=== PATIENT | male | born 1985 | race Caucasian/White ===

== ENCOUNTER → 2018-09-16 10:54 | Outpatient (CLI) | payer SELFPAY ==
--- NOTE | 2018-09-16 11:03 | RAD_ITS ---
STUDY: X-RAY - RIGHT SHOULDER REASON FOR EXAM: Male, 32 years old. Increasing bilateral shoulder pain TECHNIQUE: 4 view(s) of the shoulder. COMPARISON: None. FINDINGS: Normal glenohumeral articulation. Normal acromioclavicular joint. Normal acromion. Normal humeral head and visualized proximal humerus. The soft tissue structures are unremarkable. Normal visualized pulmonary apex. RAD/Shoulder min 2 Views IMPRESSION: Normal x-ray examination of the shoulder. Electronically Signed: Vaibhav Pacheco MD at 19:41 EST , Service support ,
--- NOTE | 2018-09-16 11:03 | RAD_ITS ---
STUDY: X-RAY - LEFT SHOULDER REASON FOR EXAM: Male, 32 years old. Shoulder pain TECHNIQUE: 4 view(s) of the shoulder. COMPARISON: None. FINDINGS: Normal glenohumeral articulation. Normal acromioclavicular joint. Normal acromion. Normal humeral head and visualized proximal humerus. The soft tissue structures are unremarkable. There is a 3 mm lucent cortical defect of the superior aspect of the mid left clavicular shaft. There is minimal overlapping periosteal reaction. Normal visualized pulmonary apex. RAD/Shoulder min 2 Views IMPRESSION: Normal x-ray examination of the shoulder. There is a 3 mm lucent cortical defect of the superior aspect of the mid left clavicular shaft with overlying periosteal reaction. This is of unknown etiology or significance. Electronically Signed: Vaibhav Pacheco MD at 19:43 EST , Service support ,
== END ==
PROVIDERS: Family Provider Family Medicine; PCP Family Medicine; Referring Provider Family Medicine; Visit Provider Family Medicine
DX: M75.101 Unspecified rotator cuff tear or rupture of right shoulder, not specified as traumatic (principal); M75.102 Unspecified rotator cuff tear or rupture of left shoulder, not specified as traumatic
CPT/HCPCS: 73030

== ENCOUNTER → 2024-08-10 | Outpatient (CLI) | payer SELFPAY ==
--- NOTE | 2024-08-10 07:57 | ECHOD_ITS ---
Reason For Study: Arrhythmia Procedure This was a 2D Doppler, Color Flow transthoracic echocardiogram. Exam performed in department. Left Ventricle Normal LV size. The left ventricular ejection fraction is 50 %. Stage 1 diastolic dysfunction. There is borderline global hypokinesis of the left ventricle. Right Ventricle Normal RV size. Normal systolic function. Atria Normal left atrium. Normal right atrium. Tricuspid Valve Normal tricuspid valve. Trivial tricuspid valve insufficiency. Pulmonic Valve Normal pulmonic valve. Great Vessels Normal aortic root. The pulmonary artery is normal size. Inferior vena cava collapse with sniff. Pericardium/Pleural No pericardial effusion. MMode/2D Measurements & Calculations LVIDd: 5.5 cm IVSd: 0.79 cm Ao root diam: 3.4 cm LVIDs: 3.6 cm LVPWd: 0.84 cm RVDd: 3.4 cm FS: 35.5 % LAV(MOD-bp): 33.0 ml SV(MOD-sp4): 69.5 ml LVAd ap4: 35.4 cm2 LAV(MOD-bp) Indexed: 15.3 ml/m2 LVLd ap4: 8.6 cm SI(MOD-sp4): 32.1 ml/m2 LAV(MOD-sp2): 37.9 ml EDV(MOD-sp4): 123.5 ml LAV(MOD-sp4): 23.4 ml EDV(sp4-el): 123.5 ml LVAs ap4: 22.0 cm2 LVLs ap4: 7.6 cm ESV(MOD-sp4): 54.0 ml ESV(sp4-el): 53.8 ml EF(MOD-sp4): 56.3 % EF(sp4-el): 56.5 % SV(sp4-el): 69.8 ml LA dimension(2D): 3.5 cm LA A4 area: 12.2 cm2 TAPSE: 1.9 cm RA A4 area: 16.2 cm2 Time Measurements MV dec time: 0.23 sec Doppler Measurements & Calculations MV E max loi: 55.8 cm/sec Lat Peak E' Loi: 13.9 cm/sec Med Peak E' Loi: 13.7 cm/sec MV A max loi: 58.4 cm/sec E/E' lat: 4.0 E/E' med: 4.1 MV E/A: 0.96 MV V2 max: 64.3 cm/sec MV P1/2t max loi: 64.8 cm/sec Ao V2 max: 102.2 cm/sec MV max P.7 mmHg MV P1/2t: 80.1 msec Ao max P.2 mmHg MV V2 mean: 40.0 cm/sec Ao V2 mean: 69.3 cm/sec MV mean P.74 mmHg MV dec slope: 236.8 cm/sec2 Ao mean P.2 mmHg MV V2 VTI: 16.9 cm MVA(P1/2t): 2.7 cm2 Ao V2 VTI: 20.1 cm AV (velocity ratio): 0.95 LV V1 max: 97.9 cm/sec PA V2 max: 113.5 cm/sec TR max loi: 178.7 cm/sec LV V1 max P.8 mmHg PA V2 mean: 79.7 cm/sec TR max P.8 mmHg LV V1 mean P.3 mmHg LV V1 mean: 70.9 cm/sec LV V1 VTI: 19.0 cm ECHO/Echo Complete Interpretation Summary The left ventricular ejection fraction is 50 %. Normal LV size. There is borderline global hypokinesis of the left ventricle. Stage 1 diastolic dysfunction. Structurally normal valves. Ordering Physician: Chaparro Chand Referring Physician: Chaparro Chand Performed By: Arsenio Pena RCS
== END | disposition home or self-care (01) ==
PROVIDERS: PCP Family Medicine; Referring Provider Internal Medicine Cardiovascular Disease; Visit Provider Internal Medicine Cardiovascular Disease
DX: R00.2 Palpitations (principal)
CPT/HCPCS: 93225; 93226; 93306

== ENCOUNTER → 2025-02-16 | Outpatient (CLI) | payer SELFPAY ==
[2025-02-16 16:18] LABS: Anion Gap 11 (5-15); BUN 16 mg/dL (4-19); BUN/Creat Ratio 15.8 RATIO (10-20); Calcium,Total 9.9 mg/dL (7.6-11.0); Carbon Dioxide 24.2 mmol/L (21.0-32.0); Chloride 103 mmol/L (98-108); Cholesterol 215 mg/dL (<=200); Glucose 89 mg/dL (70-99); Low Density Lipoprotein Calc. 108 mg/dL; Potassium 4.3 mmol/L (3.3-5.1); Triglycerides 307 mg/dL; Very Low Density Lipoprotein 61 mg/dL (5-40); cholesterol:hdl ratio screen 4.73
== END | disposition home or self-care (01) ==
LOC: MTLAB 11:37
PROVIDERS: PCP Family Medicine; Referring Provider Family Medicine; Visit Provider Family Medicine
DX: Z13.220 Encounter for screening for lipoid disorders (principal); Z13.1 Encounter for screening for diabetes mellitus; R53.83 Other fatigue
CPT/HCPCS: 36415; 80048; 80061

== ENCOUNTER → 2025-03-17 | Outpatient (CLI) | payer SELFPAY ==
--- OUTSIDE RECORDS SUMMARY | 2025-03-17 07:51 | XMS RPT_ITS | CCD ---
Author Organization [facility] Care Team Providers Care Tray Line Worker Name Role Phone Unavailable Primary Care Provider Unavailaisha Dickson MD, Dr. Sampson Primary Care Provider Randolph MERIDA, Dr. Sampson Attending Provider Randolph MERIDA, Dr. Sampson Referring Provider Howie Blood Attending Unavailable Flavio Mccabe Primary Care Unavailable Chaparro Chand Referring Unavailable Chaparro Chand Attending Unavailable Flavio Mccabe Primary Care Unavailable Adrián Dickson Referring Unavailable Adrián Dickson Attending Unavailable Adrián Dickson Primary Care Unavailable Chaparro Chand Referring Unavailable Chaparro Chand Attending Unavailable Flavio Mccabe Primary Care Unavailable Chaparro Chand Attending Unavailable Bogdan Jacob Referring Unavailable Flavio Mccabe Primary Care Unavailable Medications Current Medications Medication Drug Class(es) Dates Sig (Normalized) Sig (Original) Cardio Plus (1 source) Start: 08-03-2024 Cardio Plus Active PO August 03, 2024 1:00am Winslow 250 mg capsule (1 source) Start: 08-03-2024 take 1 mg by mouth once daily Winslow 250 mg capsule Active mg PO DAILY August 03, 2024 1:00am Joint Advantage Gold (1 source) Start: 08-03-2024 Joint Advantage Gold Active PO August 03, 2024 1:00am vitamin e 180 mg oral capsule (1 source) Start: 08-03-2024 take 1 capsule by mouth once daily Vitamin E (Dl, Acetate) 180 mg (400 unit) capsule Active 180 mg PO daily August 03, 2024 1:00am Problems Active Problems Problem Classification Problem Date Documented Da te Episodic/Chronic Disorders of lipid metabolism (1 source) Hyperlipidemia; Translations: [Hyperlipidemia, unspecified] 08-03-2024 Chronic Other screening for suspected conditions (not mental disorders or infectious disease) (1 source) Encounter for screening for lipoid disorders; Translations: [Encounter for screening for lipoid disorders] Onset: 02-25-2025 Episodic Other upper respiratory infections (1 source) Upper respiratory infection; Translations: [Acute upper respiratory infection, unspecified] 09-08-2024 Episodic Past or Other Problems Problem Classification Problem Date Documented Da te Episodic/Chronic Cardiac dysrhythmias (2 sources) Palpitations; Translations: [Palpitations] Onset: 2024 07-19-2024 Episodic Results Test Name Value Interpretation Reference Range Facility Anion gap in Serum or Plasma Ordered By: Adrián Dickson on 02-16-2025 Anion gap [Moles/Vol] 11 mmol/L 12-[address] [facility] BUN/creatinine ratioOrdered By: Adrián Dickson on 02-16-2025 Urea nitrogen/Creatinine [Mass ratio] 15.8 mg/mg 05-09 [facility] Basic Metabolic Profile (BMP )on 02-16-2025 BUN/CRE 15.8 RATIO Normal 05-09 [facility] Comment on above: Order Comment: Order Date: 12/08/24 Order Info: 0667-1 - BMP Order Info: [id number] - LIPID Performed By: #### L 500.4100, L500.2500 #### [facility] [address] [place], [address] Calcium [Mass/Vol] 9.9 mg/dL Normal 7.6-11.0 [facility] Comment on above: Order Comment: Order Date: 12/08/24 Order Info: 0667-1 - BMP Order Info: [id number] - LIPID Performed By: #### L 500.4100, L500.2500 #### [facility] [address] [place], [address] Chloride [Moles/Vol] 103 mmol/L Normal 98-108 [facility] Comment on above: Order Comment: Order Date: 12/08/24 Order Info: 0667-1 - BMP Order Info: [id number] - LIPID Performed By: #### L 500.4100, L500.2500 #### [facility] [address] [place], [address] CO2 [Moles/Vol] 24.2 mmol/L Normal 21.0-32.0 [facility] Comment on above: Order Comment: Order Date: 12/08/24 Order Info: 0667-1 - BMP Order Info: [id number] - LIPID Performed By: #### L 500.4100, L500.2500 #### [facility] [address] [place], [address] Creatinine [Mass/Vol] 1.00 mg/dL Normal 0.70-1.[address] [facility] Comment on above: Order Comment: Order Date: 12/08/24 Order Info: 06- - [facility] Order Info: [id number] - LIPID Performed By: #### L 500.4100, L500.2500 #### [facility] [address] [place], [address] GAP 11 Normal 5-15 [facility] Comment on above: Order Comment: Order Date: 12/08/24 Order Info: 0667- - [facility] Order Info: [id number] - LIPID Performed By: #### L 500.4100, L500.2500 #### [facility] [address] [place], [address] GFR/1.73 sq M.predicted among non-blacks MDRD (S/P/Bld) [Vol rate/Area] 97 mL/min/{1.73_m2} Normal >60 [facility] Comment on above: Order Comment: Order Date: 12/08/24 Order Info: 0667-1 - [facility] Order Info: [id number] - LIPID Result Comment: mL/m in/1.73m2 CKD-EPI Creatinine Equation (2020) Performed By: #### L 500.4100, L500.2500 #### [facility] [address] [place], [address] Glucose [Mass/Vol] 89 mg/dL Normal 70-99 [facility] Comment on above: Order Comment: Order Date: 12/08/24 Order Info: 0667-1 - BMP Order Info: [id number] - LIPID Performed By: #### L 500.4100, L500.2500 #### [facility] [address] [place], [address] Potassium [Moles/Vol] 4.3 mmol/L Normal 3.3-5.[address] [facility] Comment on above: Order Comment: Order Date: 12/08/24 Order Info: 0667-1 - BMP Order Info: - LIPID Performed By: #### L 500.4100, L500.2500 #### [facility] [address] [place], [address] Sodium [Moles/Vol] 138 mmol/L Normal 133-145 [facility] Comment on above: Order Comment: Order Date: 12/08/24 Order Info: 0667-1 - [facility] Order Info: [id number] - LIPID Performed By: #### L 500.4100, L500.2500 #### [facility] [address] [place], [address] Urea nitrogen [Mass/Vol] 16 mg/dL Normal 4-19 [facility] Comment on above: Order Comment: Order Date: 12/08/24 Order Info: 0667-1 - BMP Order Info: [id number] - LIPID Performed By: #### L 500.4100, L500.2500 #### [facility] [address] [place], [address] Calculated very low density lipoprotein (VLDL) cholesterol measurementOrdered By: Adrián Dickson on 02-16-2025 Calculated very low density lipoprotein (VLDL) cholesterol measurement 61 mg/dL High 5-40 [facility] Carbon dioxide, total [Moles /volume] in Central venous bloodOrdered By: Adrián Dickson on 02-16-2025 CO2 [Moles/Vol] 24.2 mmol/L 21.0-32.0 [facility] Chloride assayOrdered By: Michael Dickson on 02-16-2025 Chloride [Moles/Vol] 103 mmol/L 98-108 [facility] Glomerular filtration rate ( GFR) estimation/1.73 sq m using serum, plasma, or whole bOrdered By: Adrián Dickson on 02-16-2025 GFR/1.73 sq M.predicted among non-blacks MDRD (S/P/Bld) [Vol rate/Area] 97 mL/min/{1.73_m2} >60 [facility] Comment on above: mL/min/1.73m2 CKD-EP I Creatinine Equation (2020) LDL calc ser/plasOrdered By: Adrián Dickson on 02-16-2025 Cholesterol in LDL [Mass/Vol] 108 mg/dL [facility] Comment on above: Urbtfrjtdb=085-470 m g/dL & Higher Olqu=677 mg/dL or greaterFriedwald Equation for LDL-C Lipid Profileon 02-16-2025 CHOL:HDL 4.73 Normal [facility] Comment on above: Order Comment: Order Date: 12/08/24 Order Info: 0667-1 - BMP Order Info: [id number] - LIPID Performed By: #### L 500.4100, L500.2500 #### [facility] [address] [facility] [place], [address] Cholesterol [Mass/Vol] 215 mg/dL High <=200 [facility] Comment on above: Order Comment: Order Date: 12/08/24 Order Info: 0667-1 - BMP Order Info: [id number] - LIPID Result Comment: Chol esterol level, Desirable <200 mg/dL Borderline high cholesterol 200-239 mg/dL High cholesterol >=240 mg/dL Recommendations of the NCEP Adult Treatment Panel for the following risk-cutoff thresholds for the [place] population. Performed By: #### L 500.4100, L500.2500 #### [facility] [address] [place], [place], [address] Cholesterol in HDL [Mass/Vol] 46 mg/dL Normal [facility] Comment on above: Order Comment: Order Date: 12/08/24 Order Info: 0667-1 - BMP Order Info: [id number] - LIPID Result Comment: Vanda onal Cholesterol Education Program (NCEP) guidelines: <40 mg/dL: Low HDL-cholesterol (major risk factor for CHD) >= 60 mg/dL: High HDL-cholesterol (negative risk factor for CHD) HDL-cholesterol is affected by a number of factors, e.g. smoking, exercise, hormones, sex and age. Performed By: #### L 500.4100, L500.2500 #### [facility] [address] [place], [address] Cholesterol in LDL [Mass/Vol] 108 mg/dL Normal [facility] Comment on above: Order Comment: Order Date: 12/08/24 Order Info: 0667-1 - BMP Order Info: [id number] - LIPID Result Comment: Bord xmguki=583-008 mg/dL Higher Rmfl=235 mg/dL or greater Friedwald Equation for LDL-C Performed By: #### L 500.4100, L500.2500 #### [facility] [address] [place], [address] Cholesterol in VLDL [Mass/Vol] 61 mg/dL High 5-40 [facility] Comment on above: Order Comment: Order Date: 12/08/24 Order Info: 0667- - BMP Order Info: [id number] - LIPID Performed By: #### L 500.4100, L500.2500 #### [facility] [address] [place], [address] Triglyceride [Mass/Vol] 307 mg/dL High [facility] Comment on above: Order Comment: Order Date: 12/08/24 Order Info: 0667-1 - BMP Order Info: [id number] - LIPID Result Comment: The drugs N-Acetylcysteine and Metamizole may falsely depress this assay. Normal range: <150 mg/dL Borderline High: 150-199 mg/dL High: 200-499 mg/dL Very High: >500 mg/dL Performed By: #### L 500.4100, L500.2500 #### [facility] [address] [place], [address] Potassium measurement (mass/ volume)Ordered By: Adrián Dickson on 02-16-2025 Potassium (Unsp spec) [Mass/Vol] 4.3 mmol/L 3.3-5.1 [facility] Screening total cholesterol/ high density lipoprotein (HDL) cholesterol ratioOrdered By: Adrián Dickson on 02-16-2025 Cholesterol.total/Chol esterol in HDL [Mass ratio] 4.73 {ratio} [facility] Serum creatinine measurement (mass/volume)Ordered By: Adrián Dickson on 02-16-2025 Creatinine [Mass/Vol] 1.00 mg/dL 0.70-1.[address] [facility] Serum glucose measurement (m ass/volume)Ordered By: Adrián Dickson on 02-16-2025 Glucose [Mass/Vol] 89 mg/dL 70-99 [facility] Serum or plasma calcium ju urement (mass/volume)Ordered By: Adrián Dickson on 02-16-2025 Calcium [Mass/Vol] 9.9 mg/dL 7.6-11.0 [facility] Serum or plasma cholesterol in HDL measurement (mass/volume)Ordered By: Adrián Dickson on 02-16-2025 Cholesterol in HDL [Mass/Vol] 46 mg/dL >40 [facility] Comment on above: National Cholesterol Education Program (NCEP) guidelines:<40 mg/dL: Low HDL-cholesterol (major risk factor for CHD)>= 60 mg/dL: High HDL-cholesterol (negative risk factor for CHD)HDL-cholesterol is affected by a number of factors, e.g. smoking, exercise, hormones, sex and age. Serum or plasma cholesterol measurement (mass/volume)Ordered By: Adrián Dickson on 02-16-2025 Cholesterol [Mass/Vol] 215 mg/dL High <201 [facility] Comment on above: Cholesterol level, D esirable <200 mg/dLBorderline high cholesterol 200-239 mg/dLHigh cholesterol >=240 mg/dLRecommendations of the NCEP Adult Treatment Panel for the following risk-cutoff thresholds for the [place] population. Serum or plasma urea nitroge n measurement (mass/volume)Ordered By: Adrián Dickson on 02-16-2025 Urea nitrogen [Mass/Vol] 16 mg/dL 4-19 [facility] Sodium levelOrdered By: Mj ortega Randolph on 02-16-2025 Sodium [Moles/Vol] 138 mmol/L 133-145 [facility] Triglycerides measurementOrd ered By: Connorannalisa Randolph on 02-16-2025 Triglyceride [Mass/Vol] 307 mg/dL High <199 [facility] Comment on above: The drugs N-Acetylcy steine and Metamizole may falsely depress this assay. Normal range: <150 mg/dLBorderline High: 150-199 mg/dLHigh: 200-499 mg/dLVery High: >500 mg/dL CNOVon 09-08-2024 CNOV Office Visit (UCWSTR ) -------- OTTO DOTSON ([id number]) 1985 M Date Time Provider Department 09/08/24 6:15 PM VANNESSA APNIAGUA [facility] During your visit today, we recorded the following information about you: Temperature Pulse Respiration Blood pressure 98.3 degrees 96/minute 16/minute 122/72 Weight 96.3 kg Vannessa Paniagua APRN.[employer] 09/08/2024 6:32 PM Signed This note was created using TransLatticeriter. Subjective Otto Dotson is a 38 year old male.Presents for 4 days of sinus congestion, cough and chest pain with cough. Reports his entire household is ill. Denies fever, chills, SOB, sore throat. Objective BP 122/72 Pulse 96 Temp 36.8 ?C (98.3 ?F) Resp 16 Wt 96.3 kg (212 lb 4.9 oz) SpO2 96% Physical Exam PHYSICAL EXAMINATION: General appearance: Well appearing, alert, in no acute distress, well-hydrated, well nourished. Nose/Sinuses: Nares normal, septum midline, mucosa normal, no drainage or sinus tenderness Lungs: Positive findings: wheezing left throughout AANDP. Productive Cough Heart: RRR without murmur, gallop, or rubs. No ectopy Assessment and Plan ASSESSMENT/PLAN: 1. URI with cough and congestion - ICD9: 465.9, ICD10: J06.9 - Discussed viral etiology and rationale for treatment. - Symptomatic treatment with prn analgesia - Supportive care with fluids and rest - The patient may also use OTC cough and cold meds as needed, warm salt water gargles, throat lozenges and/or OTC throat spray as needed, and nasal saline gtts and suction prn. - Follow up in 3-5 days if symptoms persist or sooner if worsening of symptoms Recommended Chest xray d/t wheezing/crackles on left side. Patient verbalized concern due to radiation from xray. Reviewed risks and benefits of declining xray, verbalized understanding. Reviewed red flag symptoms and instructed patient to return in 3-5 days if no improvement or worsening symptoms. Declined xray at this time. Vannessa Paniagua, MARIA.SET KEY DRIVER Allergies As of Date: 09/08/2024 (No Known Allergies) Date Reviewed: 09/08/2024 Reviewed by: Danna Wise MA - Fully Assessed Reason for Visit: Chest Congestion [236] Cmt: cough x 3 days Primary Visit Diagnosis:URI with cough and congestion [J06.9] Problem List As Of Date: 09/08/2024 (None) Encounter Status:Closed by VANNESSA PANIAGUA on 09/08/24 [facility] Echo Completeon 08-10-2024 Echo Complete [facility] [address] [place] [id number] Echo Complete 08/10/24 0806 MR#: [id number] Acct: [id number] Name: OTTO DOTSON Rep #: [id number] : 1985 38 From: Howie Blood MD Attending Dr: Dr. Chaparro Chand MD Status: RE G CLI Ordering Dr: Chaparro Chand MD Date: 08/10/24 Location: [facility] Sex: M C Admitted: Reason For Study: Arrhythmia Procedure This was a 2D Doppler, Color Flow transthoracic echocardiogram. Exam performed in department. Left Ventricle Normal LV size. The left ventricular ejection fraction is 50 %. Stage 1 diastolic dysfunction. There is borderline global hypokinesis of the left ventricle. Right Ventricle Normal RV size. Normal systolic function. Atria Normal left atrium. Normal right atrium. Tricuspid Valve Normal tricuspid valve. Trivial tricuspid valve insufficiency. Pulmonic Valve Normal pulmonic valve. Great Vessels Normal aortic root. The pulmonary artery is normal size. Inferior vena cava collapse with sniff. Pericardium/Pleural No pericardial effusion. MMode/2D Measurements Calculations LVIDd: 5.5 cm IVSd: 0.79 cm Ao root diam: 3.4 cm LVIDs: 3.6 cm LVPWd: 0.84 cm RVDd: 3.4 cm FS: 35.5 % LAV(MOD-bp): 33.0 ml SV(MOD-sp4): 69.5 ml LVAd ap4: 35.4 cm2 LAV(MOD-bp) Indexed: 15.3 ml/m2 LVLd ap4: 8.6 cm SI(MOD-sp4): 32.1 ml/m2 LAV(MOD-sp2): 37.9 ml EDV(MOD-sp4): 123.5 ml LAV(MOD-sp4): 23.4 ml EDV(sp4-el): 123.5 ml LVAs ap4: 22.0 cm2 LVLs ap4: 7.6 cm ESV(MOD-sp4): 54.0 ml ESV(sp4-el): 53.8 ml EF(MOD-sp4): 56.3 % EF(sp4-el): 56.5 % SV(sp4-el): 69.8 ml LA dimension(2D): 3.5 cm LA A4 area: 12.2 cm2 TAPSE: 1.9 cm RA A4 area: 16.2 cm2 Time Measurements MV dec time: 0.23 sec Doppler Measurements Calculations MV E max loi: 55.8 cm/sec Lat Peak E' Loi: 13.9 cm/sec Med Peak E' Loi: 13.7 cm/sec MV A max loi: 58.4 cm/sec E/E' lat: 4.0 E/E' med: 4.1 MV E/A: 0.96 MV V2 max: 64.3 cm/sec MV P1/2t max loi: 64.8 cm/sec Ao V2 max: 102.2 cm/sec MV max P.7 mmHg MV P1/2t: 80.1 msec Ao max P.2 mmHg MV V2 mean: 40.0 cm/sec Ao V2 mean: 69.3 cm/sec MV mean P.74 mmHg MV dec slope: 236.8 cm/sec2 Ao mean P.2 mmHg MV V2 VTI: 16.9 cm MVA(P1/2t): 2.7 cm2 Ao V2 VTI: 20.1 cm AV (velocity ratio): 0.95 LV V1 max: 97.9 cm/sec PA V2 max: 113.5 cm/sec TR max loi: 178.7 cm/sec LV V1 max P.8 mmHg PA V2 mean: 79.7 cm/sec TR max P.8 mmHg LV V1 mean P.3 mmHg LV V1 mean: 70.9 cm/sec LV V1 VTI: 19.0 cm ECHO/Echo Complete Interpretation Summary The left ventricular ejection fraction is 50 %. Normal LV size. There is borderline global hypokinesis of the left ventricle. Stage 1 diastolic dysfunction. Structurally normal valves. Ordering Physician: Chaparro Chand Referring Physician: Chaparro Chand Performed By: Arsenio Pena [facility] 08/10/24 0932 Date Howie Blood MD CC: Dr. Chaparro Chand MD; Dr. Flavio Mccabe DO Date Dictated: 08/10/24805 Date Transcribed: 08/10/24931 Hair Designer: Signed Normal [facility] 12 Lead EKG performed by [facility] on 08-03-2024 12 Lead EKG performed by [facility] [address] [place] [address] 12 Lead EKG performed by [facility] 08/03/24 1542 MR#: [id number] Acct: [id number] Name: OTTO DOTSON Rep #: [id number] : 1985 38 From: Chaparro Chand MD Attending Dr: Dr. Chaparro Chand MD Status: DE P AMB Ordering Dr: Chaparro Chand MD Date: 08/03/24 Location: [facility] Sex: M C Admitted: BMS/12 Lead EKG performed by [facility] ECG Report Interpretation --Sinus Rhythm WITHIN NORMAL LIMITSElectronically signed on 08/03/2024 at 16:[address] Chaparro [employer] Version 8610 08/03/24 1625 Date Chaparro Chand MD CC: Dr. Flavio Mccabe, DO Date Dictated: 08/03/241541 Date Transcribed: 08/03/241541 Hair Designer: Signed Normal [facility] Cardiology Visit Reporton Cardiology Visit Report [facility] [address] [place] [address] OFFICE VISIT Date of Service: 08/03/24 MR#: [id number] Acct: [id number] Name: OTTO DOTSON Rep #: [id number] : 1985 Provider: Dr. Chaparro trinidad MD Age/Sex: 38/M Location: [facility] Status: Signed HPI HPI History of Present Illness Details: Patient is a 38-year-old white male that comes in for new patient visit. The patient had been evaluated by Dr. Jr Jose back in 2015 for palpitations he continues to have palpitations. He denies any syncope or near syncope he is a aerobically active he works full- time denies any lower extremity edema or chest symptoms. The palpitations seem to occur when he is stressed or after he has eaten a heavy meal. They occur almost on a daily basis. The patient had a Holter monitor done January 2016 which showed an average heart rate of 85 minimum heart rate of 52 and maximum of 156. He had 2 isolated premature atrial complexes and 2 dropped beats with no atrial runs 1 PVC with no runs. The patient kept a 24-hour diary any noted palpitations and anxious shortness of breath sensations which occasionally correlated with the scan. The patient had an echocardiogram done December 2015 which showed a low normal EF of 50% with trivial mitral and tricuspid regurgitation and trivial pulmonary valve insufficiency. The patient does some limited exercising with jumping jacks and push-ups each morning for about 5 minutes. He has had no limitations to his ability to do this. Patient had a lipid panel done December 2023 which showed total cholesterol of 221 HDL of 53 triglycerides of 168 and LDL of 137 LFTs were normal his basic metabolic panel was normal renal function was normal and CBC was normal. The patient reports that he had been on supplements in the past and did utilize red yeast rice but was not taken at the time of this evaluation. Patient does have a family history of coronary disease in his dad the patient is not hypertensive he is hyperlipidemic he does not smoke and he is not diabetic. EKG in the office today shows normal sinus rhythm and is within normal limits. Intake Vital Signs 08/03/24 15:44 Height 5 ft 11 in Weight: 212 lb BMI 29.5 BP 128/84 H Blood Pressure Location Lt brachial Position Sitting Respiration 18 Pulse 89 Pulse Source Monitor Pulse Oximetry (%) 95 Oxygen Delivery Method room air Intake Visit Reasons: EST/PALPS (SELF) Schedule Announcer Required: No Accompanied by: Self Is patient in pain?: No Allergies No Known Allergies Allergy (Unverified 08/03/24 15:41) Medications ???Medication ???Instructions ???Recorded ???Confirmed ???Type Cardio Plus PO 08/03/24 08/03/24 History Joint Advantage Gold PO 08/03/24 08/03/24 History hawthorn 250 mg capsule mg PO DAILY 08/03/24 08/03/24 History vitamin E (dl, acetate) 180 mg 180 mg PO QDAY 08/03/24 08/03/24 History (400 unit) capsule Ejection fraction %: 50 Have you fallen in the past year?: No PFSH Medical History Palpitations Tibia/fibula fracture Tongue tie Surgical History H/O arthroscopy of left knee Family History Father Heart disease Mother Diabetes Social History Smoking Status: Never smoker alcohol intake: never substance use type: does not use caffeine: Yes ROS Const Const: Negative for fatigue or weakness ENT ENT: Negative for dizziness or balance problems Cardio Chest Pain: No Palpitations: Yes Edema: None Muscle aches with walking: None Resp Respiratory: Negative for SOB with activity, SOB at rest or SOB orthopnea SOB lying down GI GI: Negative nausea, vomiting or heartburn Musc Musc: Negative for muscle weakness or balance problems Neuro Neuro: Negative for dizziness, lightheadedness, near syncope, syncope or weakness Endo Endo: Negative for fatigue Cardiology Exam Const Appearance: cooperative, healthy appearing, comfortable, no acute distress and well developed Head Head: normal to inspection Eyes General: appearance normal, both eyes and all related structures Neck Neck: normal visual inspection and no JVD Carotids: Negative bruit Chest Chest inspection: normal inspection of the chest Auscultation: Bilateral: Clear to Auscultation Cardio Rate: regular rate Rhythm: regular rhythm Heart sounds: S1 normal and S2 normal; Negative rub, gallop or murmur GI GI: normal to inspection, soft and bowel sounds present Neuro General: patient alert and patient oriented x3 Skin Skin: no rashes or lesions noted Extremities Lower Extremi (more content not included)... Normal [facility] Vital Signs Date Time Vital Sign Value Performing Clinician Tana zuluaga 09-08-2024 18:17-0500 Body temperature 98.29 [degF] Vannessa Paniagua APRN.CNP Work Phone: [facility] 09-08-2024 18:17-0500 Body weight 96.3 kg Vannessa Paniagua APRN.CNP Work Phone: [facility] 09-08-2024 18:17-0500 Diastolic blood pressure 72 mm[Hg] Vannessa Paniagua APRN.CNP Work Phone: [facility] 09-08-2024 18:17-0500 Heart rate 96 /min Vannessa Paniagua APRN.CNP Work Phone: [facility] 09-08-2024 18:17-0500 Respiratory rate 16 /min Vannessa Paniagua APRN.CNP Work Phone: [facility] 09-08-2024 18:17-0500 SaO2% (BldA) [Mass fraction] 96 % Vannessa Paniagua APRN.CNP Work Phone: [facility] 09-08-2024 18:17-0500 Systolic blood pressure 122 mm[Hg] Vannessa Paniagua APRN.SET KEY DRIVER Work Phone: [facility] Encounters Encounter Date Encounter Type Care Provider Facility Start: 02-16-2025 End: 02-16-[address] Adrián Dickson MD Work Phone: [facility] Start: 02-16-2025 End: 02-16-[address] Adrián Dickson MD [facility] Work Phone: Start: 02-16-2025 End: 02-16-2025 ambulatory Adrián Dickson Facility:[facility] Start: 09-08-2024 End: 09-08-2024 ambulatory Facility:[facility] Start: 09-08-2024 End: 09-08-2024 Patient encounter procedure Vannessa Paniagua APRN.[employer] Work Phone: [facility] Comment on above: URI with cough and c ongestion (Primary Dx) Start: 08-10-2024 ambulatory [facility] [place] [facility] Start: 08-10-2024 End: 08-10-2024 ambulatory [facility] Facility:[facility] Start: 08-03-2024 End: 08-03-2024 ambulatory [facility] Facility:[facility] [place] Plan of Treatment Date Care Activity Detail Author Start: 03-21-2024 Covid-19 Vaccine ( season) Covid-19 Vaccine ( season) [facility] Start: 03-21-2024 Influenza vaccination Influenza Vacc ine (#1) [facility] Start: 06-15-2022 Urine microalbumin profile DTa P,Tdap,Td Vaccine (2 - Td or Tdap) [facility] Start: 09-19-2018 Lipid panel Lipid Screening [facility] Start: 09-19-2002 Hepatitis B Vaccine (1 of 3 - 19+ 3-dose series) Hepatitis B Vaccine (1 of 3 - 19+ 3-dose series) [facility] Start: 09-19-2001 Anxiety Screening Anxiety Screening [facility] Start: 09-19-2001 Depression Screening Depression Scre dieudonne [facility] Start: 09-19-2001 Hepatitis C screening Hepatitis C Sc edwin [facility] Start: 09-19-2001 HIV screening HIV Screening [facility] Immunizations Immunization Date Immunization Notes Care Provider Philly herrera 06-15-2012 influenza virus vacc ine, unspecified formulation Vannessa Paniagua APRN.[employer] DRIVER Work Phone: [facility] Payers Date Payer Category Payer Unknown [id number] Unknown [id number] Self-pay 2013 Unknown [id number] Unknown [id number] [id number] Unknown [id number] Unknown [id number] [id number] [id number] Unknown [id number] [id number] [id number] Unknown [id number] [id number] [id number] Social History Date Type Detail Facility Start: 01-04-2018 End: 08-03-2024 Tobacco smoking status NHIS Never smoked tobacco [facility] Start: 01-04-2018 Tobacco use and exposure Smokeless tobacco non-user [facility] Start: 01-04-2018 End: 06-28-2020 History of Social function [facility] Start: 01-04-2018 End: 06-28-2020 Tobacco use panel [facility] National Score (1-100), lower number is lower risk Not on file [facility] Start: 1985 Sex assigned at Not on file [facility] Start: 1985 Sex Assigned At Male [facility] History of Present illness Narrative 09-08-2024 Vannessa Paniagua APRN.NEHEMIAH - 09/08/2024 6:28 PM EST Note Date & Type Note Facility 09-08-2024 History of Presen t illness Narrative This note was created using NoteWriter. Subjective Otto Dotson is a 38 year old male.Presents for 4 days of sinus congestion, cough and chest pain with cough. Reports his entire household is ill. Denies fever, chills, SOB, sore throat. Objective BP 122/72 Pulse 96 Temp 36.8 C (98.3 F) Resp 16 Wt 96.3 kg (212 lb 4.9 oz) SpO2 96% Physical Exam PHYSICAL EXAMINATION: General appearance: Well appearing, alert, in no acute distress, well-hydrated, well nourished. Nose/Sinuses: Nares normal, septum midline, mucosa normal, no drainage or sinus tenderness Lungs: Positive findings: wheezing left throughout A&P. Productive Cough Heart: RRR without murmur, gallop, or rubs. No ectopy Assessment and Plan ASSESSMENT/PLAN: 1. URI with cough and congestion - ICD9: 465.9, ICD10: J06.9 - Discussed viral etiology and rationale for treatment. - Symptomatic treatment with prn analgesia - Supportive care with fluids and rest - The patient may also use OTC cough and cold meds as needed, warm salt water gargles, throat lozenges and/or OTC throat spray as needed, and nasal saline gtts and suction prn. - Follow up in 3-5 days if symptoms persist or sooner if worsening of symptoms Recommended Chest xray d/t wheezing/crackles on left side. Patient verbalized concern due to radiation from xray. Reviewed risks and benefits of declining xray, verbalized understanding. Reviewed red flag symptoms and instructed patient to return in 3-5 days if no improvement or worsening symptoms. Declined xray at this time. Vannessa Paniagua APRN.[employer] DRIVER documented in this encounter [facility] Progress note 09-08-2024 Note Date & Type Note Facility 09-08-2024 Note HNO ID: [id number] Author: VANNESSA PANIAGUA APRN.NEHEMIAH Service: ? Author Type: Nurse Practitioner Type: Progress Notes Filed: 09/08/2024 18:32 Note Text: This note was created using TransLatticer[employer]. Subjective Otto Dotson is a 38 year old male.Presents for 4 days of sinus congestion, cough and chest pain with cough. Reports his entire household is ill. Denies fever, chills, SOB, sore throat. Objective BP 122/72 Pulse 96 Temp 36.8 ?C (98.3 ?F) Resp 16 Wt 96.3 kg (212 lb 4.9 oz) SpO2 96% Physical Exam PHYSICAL EXAMINATION: General appearance: Well appearing, alert, in no acute distress, well-hydrated, well nourished. Nose/Sinuses: Nares normal, septum midline, mucosa normal, no drainage or sinus tenderness Lungs: Positive findings: wheezing left throughout AANDP. Productive Cough Heart: RRR without murmur, gallop, or rubs. No ectopy Assessment and Plan ASSESSMENT/PLAN: 1. URI with cough and congestion - ICD9: 465.9, ICD10: J06.9 - Discussed viral etiology and rationale for treatment. - Symptomatic treatment with prn analgesia - Supportive care with fluids and rest - The patient may also use OTC cough and cold meds as needed, warm salt water gargles, throat lozenges and/or OTC throat spray as needed, and nasal saline gtts and suction prn. - Follow up in 3-5 days if symptoms persist or sooner if worsening of symptoms Recommended Chest xray d/t wheezing/crackles on left side. Patient verbalized concern due to radiation from xray. Reviewed risks and benefits of declining xray, verbalized understanding. Reviewed red flag symptoms and instructed patient to return in 3-5 days if no improvement or worsening symptoms. Declined xray at this time. Vannessa Paniagua APRN.SET [employer] DRIVER [facility] Evaluation note Note Date & Type Note Facility Evaluation note Diagnosis URI with cough and congestion- Primary documented in this encounter [facility] Evaluation note Note Date & Type Note Facility Evaluation note No assessment information availa ble [facility] Work Phone: Reason for referral (narrative) Note Date & Type Note Facility Reason for referral (narrative) No reason for referral information available [facility] Work Phone: Summary Purpose Family History No Family History Records Found Relationship Condition Age at Onset Recorded Date/T karson father Cardiac disease Unknown mother Diabetes mellitus Unknown Advance Directives No Advanced Directives Records FoundNo Advanced Directives Records Found Chief Complaint and Reason for Visit Chief Complaint Admit Date EORDERS February 16, 2025 11:3 5am Additional Source Comments Source Comments (unrecognize d section and content) In the event this informatio n is protected by the Federal Confidentiality of Alcohol and Drug Abuse Patient Records regulations: The Federal rules restrict any use of the information to criminally investigate or prosecute any alcohol or drug abuse patient.[facility] Reason for Visit (unrecogniz ed section and content) Reason Comments Chest Congestion cough x 3 days (unrecognized sect ion and content) No Status Records FoundNo Status Records Found INFORMATION SOURCE (unrecogn ized section and content) DATE CREATED AUTHOR 09/10/2024 [facility] DATE CREATED AUTHOR AUTHOR'S ORGANIZ ATION 02/27/2025 [facility] Teams (unrecognized sec tion and content) Team Status: Active Member Role/Relationship Status Dates Dr. Bogdan Jacob DO Family Provider Active Dr. Adrián Dickson MD Primary Care Provider Acti ve Team Status: Inactive Member Role/Relationship Status Dates Dr. Adrián Dickson MD Primary Care Provider Acti ve Start: February 16, 2025 End: February 16, 2025 Dr. Adrián Dickson MD Attending Provider Active Start: February 16, 2025 End: February 16, 2025 Dr. Adrián Dickson MD Referring Provider Active Start: February 16, 2025 End: February 16, 2025 Goals (unrecognized section and content) Goals may be documented in a n alternate section FOR RECORDS PERTAINING TO PATIENTS WHO ARE OR HAVE BEEN ENROLLED IN A CHEMICAL DEPENDENCY/SUBSTANCEABUSE PROGRAM, SOME INFORMATION MAY BE OMITTED. This clinical summary was aggregated from multiple sources. Caution should be exercised in using it in the provision of clinical care. This summary normalizes information from multiple sources, and as a consequence, information in this document may materially change the coding, format and clinical context of patient data. In addition, data may be omitted in some cases. CLINICAL DECISIONS SHOULD BE BASED ON THE PRIMARY CLINICAL RECORDS. [employer] provides no warranty or guarantee of the accuracy or completeness of information in this document.
== END | disposition home or self-care (01) ==
PROVIDERS: PCP Family Medicine; Referring Provider Family Medicine; Visit Provider Family Medicine
DX: Z00.00 Encounter for general adult medical examination without abnormal findings (principal)

== ENCOUNTER → 2025-04-27 | Outpatient (CLI) | payer SELFPAY ==
[2025-04-27 11:26] LABS: Follicle Stimulating Hormone 2.0 mIU/mL
[2025-05-02 14:08] LABS: Testosterone, % Free 2.79 % (1.50-4.20); Testosterone, Free 9.54 ng/dL (5.00-21.00)
== END | disposition home or self-care (01) ==
LOC: MTLAB 08:05
PROVIDERS: PCP Family Medicine; Referring Provider Family Medicine; Visit Provider Family Medicine
DX: R53.83 Other fatigue (principal)
CPT/HCPCS: 36415; 83001; 83002; 84270; 84402; 84403